=== PATIENT | female | born 1950 | race Caucasian/White ===

== ENCOUNTER → 2017-03-11 | Outpatient (CLI) | payer OTHER | LOC: FIMAGING 06:57 | PROVIDERS: ATTEND Physician Assistant | DX: M54.5 Low back pain (principal); M25.552 Pain in left hip; M48.07 Spinal stenosis, lumbosacral region; M48.06 Spinal stenosis, lumbar region; R93.7 Abnormal findings on diagnostic imaging of other parts of musculoskeletal system; Z85.3 Personal history of malignant neoplasm of breast ==

== ENCOUNTER → 2017-04-08 | Outpatient (CLI) | payer OTHER | LOC: FIMAGING 15:11 | DX: M25.551 Pain in right hip (principal); M16.11 Unilateral primary osteoarthritis, right hip; M51.36 Other intervertebral disc degeneration, lumbar region; S76.011A Strain of muscle, fascia and tendon of right hip, initial encounter; Z96.642 Presence of left artificial hip joint; M54.2 Cervicalgia; S13.140A Subluxation of C3/C4 cervical vertebrae, initial encounter; S13.160A Subluxation of C5/C6 cervical vertebrae, initial encounter; R93.7 Abnormal findings on diagnostic imaging of other parts of musculoskeletal system ==

== ENCOUNTER → 2017-09-23 | Outpatient (CLI) | payer OTHER | LOC: FIMAGING 09:22 | PROVIDERS: ATTEND Physician Assistant | DX: N63.20 Unspecified lump in the left breast, unspecified quadrant (principal) | CPT/HCPCS: 76641; G0204 ==

== ENCOUNTER → 2018-12-09 | Outpatient (CLI) | payer OTHER | LOC: FIMAGING 10:12 | PROVIDERS: ATTEND Physician Assistant | DX: Z12.31 Encounter for screening mammogram for malignant neoplasm of breast (principal); Z85.3 Personal history of malignant neoplasm of breast; Z80.3 Family history of malignant neoplasm of breast ==